=== PATIENT | male | born 1935 | race Two or more races ===

== ENCOUNTER 2017-04-03 00:03 | Inpatient (IN) ==
[2017-04-03 01:31] LABS: Basophils % 0.5 % (0.0-0.8); Eosinophils # 0.4 10*3/uL (0.0-0.87); Eosinophils % 4.6 % (0.00-10.9); Hematocrit 40.9 VOL% (42.0-52.0); Hemoglobin 13.7 GM/DL (14.0-18.0); Immature Granulocytes % 0.6 %; Immature Granulocytes Absolute 0.05 #; Lymphocytes # 1.3 10*3/uL (1.4-4.0); Lymphocytes % 15.6 % (21.2-54.2); Mean Corpuscular HGB Conc 33.5 GM/DL (32-36); Mean Corpuscular Hemoglobin 30 PG (27-34); Mean Corpuscular Volume 90.7 FL (87-102); Mean Platelet Volume 11.3 FL (9.6-12.0); Monocytes # 0.7 10*3/uL (0.11-0.8); Monocytes % 8.2 % (1.7-12.7); Neutrophils % 70.5 % (38.7-73.9); Platelet Count 163 T/CUMM (130-400); Red Blood Count 4.51 MC/CUMM (3.8-5.5); Red Cell Distribution Width 13.1 % (9.3-17.3); White Blood Count 8.5 T/CUMM (4-12)
[2017-04-03 01:42] LABS: Apearance,Urine CLEAR (Clear); Bilirubin,Urine Negative (Negative); Blood, Urine Negative (Negative); Calcium 8.2 MG/DL (8.5-10.1); Glucose,Urine (UA) >=500 mg/dL (Negative); Hyaline Casts,Urine 5 /LPF (0-3); Ketones,Urine Negative (Negative); Magnesium 2.1 MG/DL (1.8-2.4); Mucus,Urine Occasional /LPF (Occasional); Nitrite,Urine Negative (Negative); Osmolality,Calculated 289.5 MOS/KG (273-304); Potassium 3.9 MMOL/L (3.5-5.1); Protein,Urine Negative; RBC,Urine 2 /HPF (0-4); Urine Color Yellow (Yellow); Urine Specific Gravity 1.011 (1.001-1.035); Urine Urobilinogen < 2.0 EU/DL (0.2-1.0); WBC,Urine <1 /HPF (0-6)
[2017-04-03 01:46] LABS: Troponin I Only 0.109 NG/ML (0.00-0.045)
[2017-04-03 01:54] LABS: Barbiturates Screen,Urine Negative (Negative); Benzodiazepines Screen,Urine Negative (Negative); Cannabinoid Screen,Urine Negative (Negative); Opiate Screen,Urine Negative (Negative); Phencyclidine Screen,Urine Negative (Negative)
[2017-04-03] MEDS ORDERED: ENOXAPARIN 100 MG/ML SYRINGE SUBCUT STA (02:02)
[2017-04-03] MEDS ORDERED: ASPIRIN CHEW 81 MG TABLET PO STA (02:02)
[2017-04-03] MEDS ORDERED: ASPIRIN 325 MG TABLET ONE (02:21)
[2017-04-03] MEDS ORDERED: ENOXAPARIN 100 MG/ML SYRINGE SUBCUT ONE (02:21)
[2017-04-03] MEDS ORDERED: MORPHINE 2 MG/1 ML SYRINGE IV PRN (04:33)
[2017-04-03] MEDS ORDERED: NITROGLYCERIN SL 0.4 MG TABLET SL PRN (04:37)
[2017-04-03] MEDS ORDERED: DEXTROSE 50% 25 GM/50 ML VIAL IV PRN (04:40)
[2017-04-03] MEDS ORDERED: GLUCAGON 1 MG VIAL IM PRN (04:40)
[2017-04-03] MEDS ORDERED: SODIUM CHLORIDE 0.9% 1,000 ML IV SCH (05:00)
[2017-04-03 13:55] LABS: Troponin I Only 0.101 NG/ML (0.00-0.045)
[2017-04-03] MEDS: METOPROLOL TARTRATE 25 MG TABLET PO SCH ×2 (14:05→20:50)
[2017-04-03] MEDS: INSULIN LISPRO 100 UNIT/ML SUBCUT SCH ×3 (14:05→20:44)
[2017-04-03] MEDS: ENOXAPARIN 100 MG/ML SYRINGE SUBCUT SCH (14:11)
[2017-04-03] MEDS: FUROSEMIDE 40 MG/4 ML VIAL IV SCH (17:16)
[2017-04-03 19:47] LABS: Troponin I Only 0.105 NG/ML (0.00-0.045)
[2017-04-03] MEDS: ROSUVASTATIN 20 MG TABLET PO SCH (20:50)
[2017-04-04] MEDS: ENOXAPARIN 100 MG/ML SYRINGE SUBCUT SCH (02:10)
[2017-04-04 05:58] LABS: Basophils % 0.7 % (0.0-0.8); Eosinophils # 0.3 10*3/uL (0.0-0.87); Eosinophils % 5.8 % (0.00-10.9); Hematocrit 42.6 VOL% (42.0-52.0); Hemoglobin 14.4 GM/DL (14.0-18.0); Immature Granulocytes % 0.3 %; Immature Granulocytes Absolute 0.02 #; Lymphocytes # 1.3 10*3/uL (1.4-4.0); Lymphocytes % 22.6 % (21.2-54.2); Mean Corpuscular HGB Conc 33.8 GM/DL (32-36); Mean Corpuscular Hemoglobin 30 PG (27-34); Mean Corpuscular Volume 89.7 FL (87-102); Mean Platelet Volume 11.1 FL (9.6-12.0); Monocytes # 0.7 10*3/uL (0.11-0.8); Monocytes % 12.2 % (1.7-12.7); Neutrophils # 3.4 10*3/uL (1.4-7.4); Neutrophils % 58.4 % (38.7-73.9); Platelet Count 183 T/CUMM (130-400); Red Blood Count 4.75 MC/CUMM (3.8-5.5); Red Cell Distribution Width 12.9 % (9.3-17.3); White Blood Count 5.8 T/CUMM (4-12)
[2017-04-04 06:33] LABS: Calcium 8.6 MG/DL (8.5-10.1); Osmolality,Calculated 282.4 MOS/KG (273-304); Potassium 4.1 MMOL/L (3.5-5.1); Risk Ratio 2.5; VLDL CHOLESTEROL 10.4 MG/DL
[2017-04-04] MEDS: ASPIRIN EC 81 MG TABLET PO SCH (09:10)
[2017-04-04] MEDS: FUROSEMIDE 40 MG/4 ML VIAL IV SCH ×2 (09:10→15:34)
[2017-04-04] MEDS: INSULIN LISPRO 100 UNIT/ML SUBCUT SCH ×4 (09:10→21:51)
[2017-04-04] MEDS: METOPROLOL TARTRATE 25 MG TABLET PO SCH ×2 (09:10→21:51)
[2017-04-04] MEDS: ROSUVASTATIN 20 MG TABLET PO SCH (21:51)
[2017-04-05] MEDS: ENOXAPARIN 40 MG/0.4 ML SYRINGE SUBCUT SCH (09:09)
[2017-04-05] MEDS: ASPIRIN EC 81 MG TABLET PO SCH (09:09)
[2017-04-05] MEDS: INSULIN LISPRO 100 UNIT/ML SUBCUT SCH ×4 (09:09→22:04)
[2017-04-05] MEDS: METOPROLOL TARTRATE 25 MG TABLET PO SCH ×2 (09:09→22:03)
[2017-04-05] MEDS ORDERED: SODIUM CHLORIDE 0.9% 1,000 ML IV SCH (21:00)
[2017-04-05] MEDS: ROSUVASTATIN 20 MG TABLET PO SCH (22:03)
[2017-04-06 05:48] LABS: Calcium 8.9 MG/DL (8.5-10.1); Osmolality,Calculated 281.7 MOS/KG (273-304); Potassium 4.3 MMOL/L (3.5-5.1)
[2017-04-06] MEDS: ASPIRIN EC 81 MG TABLET PO SCH (09:19)
[2017-04-06] MEDS: ENOXAPARIN 40 MG/0.4 ML SYRINGE SUBCUT SCH (09:19)
[2017-04-06] MEDS: METOPROLOL TARTRATE 25 MG TABLET PO SCH (09:19)
[2017-04-06] MEDS: INSULIN LISPRO 100 UNIT/ML SUBCUT SCH ×3 (09:22→17:25)
[2017-04-06 16:51] VITALS: BP 110/69
== END 2017-04-06 18:32 | disposition home or self-care (01) | DRG 281 ==
LOC: EDUNIT# → EDBD → N.ED 00:03 → SUATTDRO 02:12 → N.EDINP 02:12 → N.ICU 03:15 → N.TELEN 15:39
PROVIDERS: ADMIT Internal Medicine Cardiovascular Disease; ATTEND Internal Medicine